=== PATIENT | male | born 1980 | race Caucasian/White ===

== ENCOUNTER 2025-01-21 08:29 | Emergency (ER) | payer MEDICARE, MEDICAID, SELFPAY ==
[2025-01-21 08:30] VITALS: BP 152/98; PULSE 106; RESP 18; TEMP 36.3; O2SAT 98
[2025-01-21 08:32] VITALS: BMI 24.5
--- NOTE | 2025-01-21 08:47 | EX.ED.DYSGE1 ---
HPI History of Present Illness Chief Complaint: Suicidal Narrative Narrative: Patient is 44-year-old male past medical history schizophrenia, bipolar disorder who presents to the emergency department with a flight of ideas. He states that he was just in [facility] for approximately a week to 10 days and was just released yesterday. He states he is cut back appear and states that his prescriptions were sent to [facility] but feels that people have been out for him. He states that where he is from there gets black people and I do not know if I am white or black he states when questioned first if he had suicidal homicidal ideations he states no however later on the conversation he could proceed to say he has had thoughts of killing others and that is what they taught him in the [employer]. PFSH PFSH Medical History Schizophrenia Bipolar disorder Smoker Home Medications ?Medication ?Instructions ?Recorded ?Last Taken ?Type buspirone 30 mg tablet 15 mg PO BID 06/18/14 Unknown History divalproex 500 mg tablet,delayed 500 mg PO DAILY 06/18/14 Unknown History release (Depakote) fluticasone propionate 50 2 spray DAILY 06/18/14 Unknown History mcg/actuation nasal spray,suspension loratadine 10 mg tablet (Allergy 10 mg PO DAILY 06/18/14 Unknown History Relief (loratadine)) olanzapine 15 mg tablet (Zyprexa) 15 mg PO DAILY 06/18/14 Unknown History temazepam 15 mg capsule 15 mg PO QHS PRN PRN Insomnia 06/18/14 Unknown History Allergy/AdvReac Type Severity Reaction Status Date / Time haloperidol (From Haldol) AdvReac Shortness Verified 01/21/25 08:33 of breath haloperidol lactate (From AdvReac Shortness Verified 01/21/25 08:33 Haldol) of breath Phenylpiperazine AdvReac PT UNABLE Verified 01/21/25 08:33 Antidepressant TO RESPOND-NEEDS F/U Tetracyclic Antidepressants AdvReac PT UNABLE Verified 01/21/25 08:33 TO RESPOND-NEEDS F/U Tricyclic Antidepressants AdvReac PT UNABLE Verified 01/21/25 08:33 and Tricy TO RESPOND-NEEDS F/U Social History Smoking Status: Current every day smoker tobacco type: cigarettes ROS ROS ED ROS Narrative Constitutional: Denies any fevers, chills, headaches Eyes: Denies double vision Cardiovascular: Denies chest pain Respiratory: Denies shortness of breath Abdomen: Denies abdominal pain nausea vomit diarrhea : Denies urinary symptoms Neurological: Denies numbness, weeks, tingling Musculoskeletal: Denies back pain Skin: Denies any rashes or lesions Psychiatric: Denies suicidal ideations admits to homicidal ideations after questioned and he states later in the conversation as noted above EXAM Physical Exam Narrative Exam Narrative: General: Patient is lying in bed rest comfortably did not appear to be in acute distress Head: Atraumatic, normocephalic Eyes: PERRL bilaterally, EOMI bilaterally, no conjunctival injection noted Neck: Soft, supple, trachea midline Cardiovascular: Patient tachycardic with regular rhythm Respiratory: Clear to auscultation bilaterally Extremities: +5/5 strength noted in the bilateral lower extremities Neurological: Patient follow commands knew that he was at [facility] year is 2024 Skin: Warm, dry, tact no rashes or lesions noted Const Vital Signs: 01/21/25 08:30 01/21/25 13:44 Temperature 97.4 F L 97.9 F Temperature Source Temporal Oral Pulse Rate 106 H 89 Respiratory Rate 18 15 Blood Pressure 152/98 H 120/78 Blood Pressure Mean 116 92 Pulse Ox 98 100 Oxygen Delivery Method Room Air Room Air MDM MDM MDM Narrative Medical decision making narrative: Patient is a 44-year-old male who presented to the emergency department with flight of ideas. On the differential diagnose includes but limited schizophrenia, bipolar disorder, homicidal ideation. Patient be medically cleared and be evaluated by social work. Patient CBC reviewed and showed no evidence leukocytosis white blood count 8.2, hemoglobin 14.4, platelet count of 218. Patient sodium normal 130, potassium normal 4.1, creatinine was 0.61. Patient's TSH normal 1.55, free T4 and T3 were 1.40 and 4.4 respectively. Patient drug screen negative alcohol level less than 10. Patient's EKG reviewed and showed sinus rhythm with a rate of 85 bpm MO interval 140. Patient was evaluated by social work and do believe he will warrant admission pink slip was filled out. At this point time patient is pending placement see addendum for ultimate disposition details. Lab Data Labs: Laboratory Results - last 24 hr 01/21/25 01/21/25 09:01 09:35 WBC 8.2 RBC 5.01 Hgb 14.4 Hct 42.9 MCV 85.6 MCH 28.7 MCHC 33.6 RDW Std Deviation 40.0 RDW Coeff of Cayden 12.9 Plt Count 218 MPV 9.6 Immature Gran % (Auto) 0.400 Neut % (Auto) 81.4 H Lymph % (Auto) 11.3 L [place] % (Auto) 6.0 Eos % (Auto) 0.4 Baso % (Auto) 0.5 Absolute Neuts (auto) 6.7 Absolute Lymphs (auto) 0.92 Nucleated RBC % 0 Sodium 138 Potassium 4.1 Chloride 101 Carbon Dioxide 25.5 Anion Gap 11 BUN 10 Creatinine 0.61 L Estim Creat Clear Calc 151.32 Est GFR (MDRD) Non-Af 120 BUN/Creatinine Ratio 17.1 Glucose 114 H Calcium 9.6 TSH 1.550 Free T4 1.40 Free T3 pg/dL 4.4 H Urine Opiates Screen NEGATIVE U Buprenorphine Qual NEGATIVE Ur Oxycodone Screen NEGATIVE Urine Methadone Screen NEGATIVE Urine Fentanyl Screen NEGATIVE Ur Barbiturates Screen NEGATIVE Ur Phencyclidine Scrn NEGATIVE Ur Amphetamines Screen NEGATIVE U Benzodiazepines Scrn NEGATIVE Urine Cocaine Screen NEGATIVE U Cannabinoids Screen NEGATIVE Ethyl Alcohol < 10.1 Discharge Plan Triage Chief Complaint: Suicidal Other Complaint: Mental Health ED Provider: Crow Bryan Dx/Rx/DC Orders Clinical Impression: Schizophrenia, Bipolar disorder Prescriptions: No Action divalproex [Depakote] 500 MG tablet,delayed release (DR/EC) 500 mg PO DAILY temazepam 15 MG capsule 15 mg PO QHS PRN PRN (Reason: Insomnia) buspirone 30 MG tablet 15 mg PO BID olanzapine [Zyprexa] 15 MG tablet 15 mg PO DAILY fluticasone propionate 1 SPRAY spray,suspension 2 spray NASAL DAILY loratadine [Allergy Relief (loratadine)] 10 MG tablet 10 mg PO DAILY Primary Care Provider: Cody Vidal Referrals: Cody Vidal MD [Primary Care Provider, Family Practice] Print Language: Setswana Disposition Disposition: Psychiatric Hospital or Unit
[2025-01-21 09:08] LABS: Hematocrit 42.9 % (40-54); Hemoglobin 14.4 g/dL (13.0-16.5); Immature Granulocytes Count 0.030 X10^3/uL (0.0-0.0); Mean Corp Hgb Conc 33.6 g/dL (32-36); Mean Corpuscular Volume 85.6 fL (80-94); Mean Platelet Vol. 9.6 fl (6.2-12.0); NRBC Flagged by Analyzer 0 % (0-5); Platelet Count 218 K/mm3 (150-450); RBC Distribution Width CV 12.9 % (11.6-14.6); RBC Distribution Width SD 40.0 fl (35.1-43.9); Red Blood Count 5.01 M/mm3 (4.6-6.2); White Blood Count 8.2 K/mm3 (4.4-11.0)
[2025-01-21 09:52] LABS: Alcohol, Blood (Medical)-Serum < 10.1 mg/dL (<=10.0)
[2025-01-21 09:57] LABS: Anion Gap 11 (5-15); BUN 10 mg/dL (4-19); BUN/Creat Ratio 17.1 RATIO (10-20); Calcium,Total 9.6 mg/dL (7.6-11.0); Carbon Dioxide 25.5 mmol/L (21.0-32.0); Chloride 101 mmol/L (98-108); Estimated Creatinine Clearance 151.32 ml/min (50-250); Free T3 4.4 pg/mL (2.18-3.98); Glucose 114 mg/dL (70-99); Potassium 4.1 mmol/L (3.3-5.1)
[2025-01-21 10:12] LABS: Barbiturate Urine NEGATIVE (< 200 ng/mL); Benzodiazepine Urine NEGATIVE (< 200 ng/mL); PCP Urine NEGATIVE (< 25 ng/mL); THC Urine NEGATIVE (< 50 ng/mL)
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
[2025-01-21 13:44] VITALS: BP 120/78; PULSE 89; RESP 15; TEMP 36.6; O2SAT 100
--- NOTE | 2025-01-21 13:50 | EKG12_ITS ---
Test Reason : MH PLACEMENT Blood Pressure : */* mmHG Vent. Rate : 85 BPM Atrial Rate : 85 BPM P-R Int : 140 ms QRS Dur : 80 ms QT Int : 354 ms P-R-T Axes : 48 55 46 degrees QTcB Int : 421 ms Normal sinus rhythm Normal ECG Confirmed by Hola Allen ([id number]), science editor MARCELLE WILCOX ([id number]) on 01/26/2025 5:50:45 AM Referred By: Confirmed By: Hola Allen
--- NOTE | 2025-01-21 16:59 | CM.ED ---
Social work 1215: Called [facility] (ph: ) and referral faxed (f: ). Received call back at 1315 from [facility] stating that patient was out of Medicare days and was denied. Due to directly Medicaid status, the following places were called: - [facility] (ph: ). Faxed due to having one bed available (f: ). Nothing heard, so SW called again a few hours later and there were no beds. - [facility] (ph: [phone]) and they needed additional information (COVID swab and EKG). Additional testing received and packet faxed at 1540 (f: [phone]). [facility] declined due to patient just leaving a facility and not being able to get paid due to last treatment being within the last 30 days. - [facility] (ph: ) stated they did have a full ED, but SW could fax the referral packet in the case that things changed (f: ). No response received. - [facility] and [facility] had no beds. - [facility] (ph: [phone]) had no beds. - [facility] (ph: ); had to leave a for their dump worker. - [facility] (ph: [phone]) had no beds. - [facility] (ph: ) stated having a full ED and likely no beds, but SW could fax the referral packet in the case that things changed (f: ). No response received. Called [facility] (ph: ) and spoke with staff regarding patient; patient did indeed discharge from [facility] yesterday. SW explained patient's current situation and referral packet faxed (f: ). Patient and boarding house manager updated on the situation. Patient stated having no questions at this time due to being all on my own in this galaxy. Plan: placement, pending acceptance JULIETH Tejada, BENCH TECHNICIAN
[2025-01-21 17:00] VITALS: BP 126/91; PULSE 108; RESP 16; O2SAT 97
[2025-01-21] MEDS: Nicotine 4mg Gum (PBKC) 4 MG GUM PO (17:37)
--- NOTE | 2025-01-21 18:04 | CM.ED ---
Social work 1750: call received from [facility] who declined patient due to acuity within their units. 1800: called [facility] (ph: [phone] and [phone]). No ability to leave VM at either number. Called [facility] (ph: ) and no beds available today. Called [facility] (ph: ) and beds available, so referral packet faxed (f: ). 1830: called [facility] since referral packet was faxed two hours prior (at 1640). [facility] staff stated patient would be declined due to behavioral acuity. 192: [facility] called back to state ability to review with their provider. Plan: placement, pending acceptance. Shalini Shore, SPLITTER OPERATOR, FREELANCE MAKEUP ARTIST
--- NOTE | 2025-01-21 19:46 | CM.ED ---
Social work [facility] called back to provide accepting information: [facility]: [phone] [facility] slip faxed (f: ) and ED digital learning platforms manager to set up transport. Shalini Shore, RUBBER LINER, SOAP BOILER
[2025-01-21 19:59] VITALS: BP 120/81; PULSE 85; RESP 16; TEMP 36.8; O2SAT 98
[2025-01-21 20:34] VITALS: BP 120/81; PULSE 85; RESP 16; TEMP 36.8; O2SAT 98
--- NOTE | 2025-01-21 20:49 | CM.ED ---
Social work Of note, patient was asleep at all points throughout times SW went to update patient after finding out patient was accepted at [facility]the [facility]. Shalini Shore, COMMUNITY HEALTH NURSING DIRECTOR, DIRECTOR OF BUSINESS OPERATIONS
--- NOTE | 2025-01-21 21:48 | PCA ---
CALLED PHYSICIANS TO SET UP RIDE. TALKED WITH CLEM. GAVE AN ORIGINAL ETA OF 0700AM. ASKED THEM TO OUTSOURCE. CALLED BACK AND SAID LINKS WAS COMING AT [phone]
[2025-01-21] MEDS: Divalproex (ER) 500 MG Tablet 1000 MG PO (21:51)
--- NOTE | 2025-01-24 10:35 | CM.ED ---
Social work Patient's geriatric case manager from [facility], Rudy Wileyqueenie, returned phone call today. Prior to shift arrival, Rudy left a and stated direct return number to call was [phone]. SW returned call at start of shift and had to leave a . Rudy called back 5 minutes later and SW discussed patient's presentation to [facility] ED on Friday01/21/25. Rudy stated apologies due to not working Fridays, being patient's geriatric case manager for the last 2.5 years, and last seeing patient on 01/20/25 when patient left [facility]. Rudy stated patient has been in and out of psychiatric hospitals since the beginning of September 2024 with the longest stretch at home being 3 days. Rudy stated not knowing if patient was medication compliant, but Rudy would not be surprised if patient was not (patient had reported to this SW that patient was). SW received patient's mother's name and phone number (Violette Sortoeloisegibson, ph: [phone]) to add to emergency contact list should patient return to [facility] ED. Rudy was updated as to patient's disposition, stated being thankful for call, and denied further needs at this time. Shalini Shore, SCHOOL CLERK, BACK MAKER
== END 2025-01-21 23:15 ==
PROVIDERS: Emergency Provider Emergency Medicine; PCP Family Medicine; Visit Provider Emergency Medicine
DX: F20.9 Schizophrenia, unspecified (principal); F31.9 Bipolar disorder, unspecified; R45.850 Homicidal ideations; F17.210 Nicotine dependence, cigarettes, uncomplicated; Z79.899 Other long term (current) drug therapy
CPT/HCPCS: 80048; 80307; 82077; 84439; 84443; 84481; 85025; 87631; 93005; 99284